=== PATIENT | female | born 1995 | race Two or more races ===

== ENCOUNTER 2018-12-10 14:14 | Inpatient (IN) | payer OTHER ==
[~2018-12-10] VITALS: Ht 165.1 cm; Wt 59.5 kg
[2018-12-10] MEDS ORDERED: LACTATED RINGERS 1,000 ML IV PRN (14:18)
[2018-12-10] MEDS ORDERED: BETAMETHASONE 6 MG/ML, 5ML IM ONE (14:21)
[2018-12-10] MEDS ORDERED: MAGNESIUM SULF. PMX 20GM/500ML 500 ML IV ONE ×2 (14:21→23:20)
[2018-12-10] MEDS: BETAMETHASONE 6 MG/ML, 5ML IM SCH (14:29)
[2018-12-10] MEDS ORDERED: MAGNESIUM SULFATE PMX 4GM/100M 100 ML ONE (14:30)
[2018-12-10] MEDS ORDERED: MAGNESIUM SULFATE PMX 4GM/100M 100 ML IVPB ONE (15:00)
[2018-12-10] MEDS: MAGNESIUM SULF. PMX 20GM/500ML 500 ML IV SCH ×2 (15:29→23:23)
[2018-12-10 18:59] VITALS: BP 117/57
[2018-12-10 20:08] LABS: BASOPHILS # (AUTO) 0.03 x10^3/uL (0-0.1); BASOPHILS % (AUTO) 0 % (0-1); EOSINOPHILS % (AUTO) 0 % (1-7); LYMPHOCYTES # (AUTO) 1.19 x10^3/uL (1-3.4); LYMPHOCYTES % (AUTO) 12 % (22-44); MD NO; MEAN CORPUSCULAR HEMOGLOBIN 24.3 pg (27.0-34.8); MEAN CORPUSCULAR VOLUME 73.6 fL (80-100); MEAN PLATELET VOLUME 9.6 fL (7.4-10.4); MONOCYTES # (AUTO) 0.04 x10^3/uL (0.2-0.8); MONOCYTES % (AUTO) 0 % (2-9); NEUTROPHILS % (AUTO) 87 % (42-75); PLATELET COUNT 234 x10^3/uL (130-400); RED CELL DISTRIBUTION WIDTH 13.3 % (9.6-15.2)
[2018-12-10 20:18] LABS: ALANINE AMINOTRANSFERASE 17 U/L (12-78); ALBUMIN 2.8 g/dL (3.4-5.0); ANION GAP 9 mmol/L (5-15); CALCIUM 8.7 mg/dL (8.5-10.1); CHLORIDE 104 mmol/L (98-107); CREATININE 0.68 mg/dL (0.55-1.02)
[2018-12-10 20:21] LABS: ALKALINE PHOSPHATASE 102 U/L (45-117); BILIRUBIN,TOTAL 0.3 mg/dL (0.2-1.0); TOTAL PROTEIN 7.4 g/dL (6.4-8.2)
[2018-12-10 20:35] LABS: MICROSCOPIC INDICATED
[2018-12-10] MEDS: LACTATED RINGERS 1,000 ML IV SCH (23:23)
[2018-12-11] MEDS: PRENATAL VIT/IRON/FA 1 EACH TABLET PO SCH (09:00)
[2018-12-11] MEDS ORDERED: MAGNESIUM SULF. PMX 20GM/500ML 500 ML IV ONE (12:49)
[2018-12-11] MEDS: BETAMETHASONE 6 MG/ML, 5ML IM SCH (15:02)
[2018-12-11] MEDS: MAGNESIUM SULF. PMX 20GM/500ML 500 ML IV SCH (15:03)
[2018-12-11] MEDS ORDERED: MAGNESIUM SULFATE PMX 2GM/50ML 50 ML IV ONE (16:30)
[2018-12-12] MEDS: LACTATED RINGERS 1,000 ML IV SCH ×2 (02:38→13:13)
[2018-12-12] MEDS ORDERED: PRENATAL VIT/IRON/FA 1 EACH TABLET ONE (09:59)
[2018-12-12] MEDS ORDERED: DOCUSATE 100 MG CAPSULE ONE (09:59)
[2018-12-12] MEDS: PRENATAL VIT/IRON/FA 1 EACH TABLET PO SCH (10:00)
[2018-12-12] MEDS: DOCUSATE 100 MG CAPSULE PO PRN (10:00)
[2018-12-12] MEDS ORDERED: MAGNESIUM SULF. PMX 20GM/500ML 500 ML IV ONE (10:17)
[2018-12-12] MEDS: SODIUM CHLORIDE FLUSH 3ML SYRINGE IVF SCH (21:00)
[2018-12-13] MEDS: SODIUM CHLORIDE FLUSH 3ML SYRINGE IVF SCH (09:00)
[2018-12-13] MEDS ORDERED: PRENATAL VIT/IRON/FA 1 EACH TABLET ONE (10:31)
[2018-12-13] MEDS ORDERED: DOCUSATE 100 MG CAPSULE ONE (10:31)
[2018-12-13] MEDS: DOCUSATE 100 MG CAPSULE PO PRN (10:34)
[2018-12-13] MEDS: PRENATAL VIT/IRON/FA 1 EACH TABLET PO SCH (10:34)
== END 2018-12-13 13:33 | disposition home or self-care (01) | DRG 831 ==
LOC: LDOP 14:14 → LDIP 14:19
PROVIDERS: ADMIT Obstetrics & Gynecology Maternal & Fetal Medicine; ATTEND Obstetrics & Gynecology Maternal & Fetal Medicine
DX: O36.5930 Maternal care for other known or suspected poor fetal growth, third trimester, not applicable or unspecified (principal); O60.03 Preterm labor without delivery, third trimester; O40.3XX0 Polyhydramnios, third trimester, not applicable or unspecified; Z3A.33 33 weeks gestation of pregnancy
CPT/HCPCS: 36415; 80053; 81001; 83735; 85025; 86850; 86900; 87081; G0378; J0702; J3475; J7120

== ENCOUNTER 2019-01-03 17:32 | Outpatient (CLI) | payer OTHER ==
[~2019-01-03] VITALS: Ht 160 cm; Wt 61.0 kg
[2019-01-03 18:32] LABS: MICROSCOPIC INDICATED
== END 2019-01-03 20:50 | disposition home or self-care (01) ==
LOC: LDOP 17:32
PROVIDERS: ATTEND Advanced Practice Midwife
DX: O26.893 Other specified pregnancy related conditions, third trimester (principal); Z3A.36 36 weeks gestation of pregnancy
CPT/HCPCS: 59025; 81001; 87086; 99211; G0463

== ENCOUNTER 2019-01-05 17:25 | Outpatient (CLI) | payer OTHER ==
[~2019-01-05] VITALS: Ht 165.1 cm; Wt 60.9 kg
[2019-01-05 17:39] VITALS: BP 109/73
== END 2019-01-05 20:40 | disposition home or self-care (01) ==
LOC: LDOP 17:25
PROVIDERS: ATTEND Advanced Practice Midwife
DX: Z34.03 Encounter for supervision of normal first pregnancy, third trimester (principal); Z3A.36 36 weeks gestation of pregnancy
CPT/HCPCS: 59025; 87081; 99211; G0463

== ENCOUNTER 2019-01-21 00:45 | Inpatient (IN) | payer OTHER ==
[~2019-01-21] VITALS: Ht 165.1 cm; Wt 61.4 kg
[2019-01-21] MEDS ORDERED: LACTATED RINGERS 1,000 ML IV SCH (00:48)
[2019-01-21] MEDS ORDERED: D5%-LACTATED RINGERS 1,000 ML IV SCH (00:48)
[2019-01-21] MEDS ORDERED: OXYTOCIN 30U/ 0.9% NaCL 500ML 500 ML IV ONE (00:48)
[2019-01-21] MEDS ORDERED: TERBUTALINE 1 MG/ML, 1ML IVPush PRN (01:00)
[2019-01-21] MEDS ORDERED: FENTANYL PF 100 MCG/2ML IVPush PRN (01:00)
[2019-01-21] MEDS ORDERED: METOCLOPRAMIDE 5 MG/ML, 2ML IVPush PRN (01:00)
[2019-01-21] MEDS ORDERED: SODIUM CHLORIDE FLUSH 10ML SYR IVF PRN (01:00)
[2019-01-21] MEDS ORDERED: CALCIUM CARBONATE 500 MG TAB.CHEW PO PRN (01:00)
[2019-01-21] MEDS ORDERED: SODIUM CITRATE/CITRIC ACID 15 ML UDC PO PRN (01:00)
[2019-01-21] MEDS ORDERED: ONDANSETRON 2MG/ML, 2ML IVPush PRN (01:00)
[2019-01-21] MEDS ORDERED: FENTANYL PF 100 MCG/2ML IV PRN (01:00)
[2019-01-21] MEDS ORDERED: OXYTOCIN 30U/ 0.9% NaCL 500ML 500 ML ONE ×2 (01:02→02:46)
[2019-01-21] MEDS ORDERED: LIDOCAINE 1%, 20ML ONE (01:02)
[2019-01-21] MEDS ORDERED: MISOPROSTOL 200 MCG TABLET ONE (01:02)
[2019-01-21] MEDS ORDERED: NEWBORN KIT ONE (01:03)
[2019-01-21 01:22] LABS: BASOPHILS # (AUTO) 0.04 x10^3/uL (0-0.1); BASOPHILS % (AUTO) 0 % (0-1); EOSINOPHILS # (AUTO) 0.07 x10^3/uL (0-0.4); EOSINOPHILS % (AUTO) 1 % (1-7); LYMPHOCYTES # (AUTO) 3.49 x10^3/uL (1-3.4); LYMPHOCYTES % (AUTO) 38 % (22-44); MD NO; MEAN CORPUSCULAR HEMOGLOBIN 24.3 pg (27.0-34.8); MEAN CORPUSCULAR HGB CONC 32.5 g/dL (32.4-35.8); MEAN CORPUSCULAR VOLUME 74.6 fL (80-100); MEAN PLATELET VOLUME 10.2 fL (7.4-10.4); MONOCYTES # (AUTO) 0.62 x10^3/uL (0.2-0.8); MONOCYTES % (AUTO) 7 % (2-9); NEUTROPHILS % (AUTO) 54 % (42-75); PLATELET COUNT 198 x10^3/uL (130-400); RED BLOOD COUNT 5.92 x10^6/uL (3.82-5.3); RED CELL DISTRIBUTION WIDTH 13.6 % (9.6-15.2)
[2019-01-21] MEDS ORDERED: IBUPROFEN 600 MG TABLET ONE (03:09)
[2019-01-21] MEDS: OXYTOCIN 30U/ 0.9% NaCL 500ML 500 ML IV SCH ×3 (03:09→23:09)
[2019-01-21] MEDS: IBUPROFEN 600 MG TABLET PO PRN (03:12)
[2019-01-21] MEDS ORDERED: METHYLERGONOVINE 0.2 MG/ML IM PRN (03:30)
[2019-01-21] MEDS ORDERED: CARBOPROST TROMETHAMINE 250 MCG/ML, 1ML IM PRN (03:30)
[2019-01-21] MEDS ORDERED: ACETAMINOPHEN 325 MG TABLET PO PRN (03:30)
[2019-01-21] MEDS ORDERED: HYDROcodone/APAP 5/325 TABLET PO PRN ×2 (03:30)
[2019-01-21] MEDS ORDERED: ONDANSETRON 2MG/ML, 2ML IV PRN (03:30)
[2019-01-21] MEDS ORDERED: MISOPROSTOL 200 MCG TABLET PR PRN (03:30)
[2019-01-21] MEDS ORDERED: BISACODYL 10 MG SUPP PR PRN (03:30)
[2019-01-21 04:45] VITALS: BP 137/84
[2019-01-21 08:08] VITALS: BP 120/73
[2019-01-21] MEDS: DOCUSATE 100 MG CAPSULE PO PRN (08:43)
[2019-01-21] MEDS: PRENATAL VIT/IRON/FA 1 EACH TABLET PO SCH (08:43)
[2019-01-21 11:10] LABS: BASOPHILS # (AUTO) 0.06 x10^3/uL (0-0.1); BASOPHILS % (AUTO) 1 % (0-1); EOSINOPHILS # (AUTO) 0.02 x10^3/uL (0-0.4); EOSINOPHILS % (AUTO) 0 % (1-7); LYMPHOCYTES # (AUTO) 1.98 x10^3/uL (1-3.4); LYMPHOCYTES % (AUTO) 16 % (22-44); MD NO; MEAN CORPUSCULAR HEMOGLOBIN 24.4 pg (27.0-34.8); MEAN CORPUSCULAR HGB CONC 32.6 g/dL (32.4-35.8); MEAN CORPUSCULAR VOLUME 74.7 fL (80-100); MONOCYTES # (AUTO) 0.71 x10^3/uL (0.2-0.8); MONOCYTES % (AUTO) 6 % (2-9); NEUTROPHILS # (AUTO) 9.53 x10^3/uL (1.8-6.8); NEUTROPHILS % (AUTO) 78 % (42-75); PLATELET COUNT 157 x10^3/uL (130-400); RED BLOOD COUNT 4.72 x10^6/uL (3.82-5.3); RED CELL DISTRIBUTION WIDTH 13.3 % (9.6-15.2)
[2019-01-21 12:22] VITALS: BP 115/70
[2019-01-21 16:36] VITALS: BP 118/75
[2019-01-21 20:35] VITALS: BP 129/87
[2019-01-21 23:15] VITALS: BP 126/84
[2019-01-22] MEDS: IBUPROFEN 600 MG TABLET PO PRN ×3 (00:07→22:17)
[2019-01-22] MEDS: DOCUSATE 100 MG CAPSULE PO PRN ×2 (00:07→08:27)
[2019-01-22 08:20] VITALS: BP 113/81
[2019-01-22] MEDS: PRENATAL VIT/IRON/FA 1 EACH TABLET PO SCH (08:27)
[2019-01-22] MEDS: OXYTOCIN 30U/ 0.9% NaCL 500ML 500 ML IV SCH (09:09)
[2019-01-22 20:05] VITALS: BP 112/74
[2019-01-23 07:30] VITALS: BP 128/83
[2019-01-23] MEDS: PRENATAL VIT/IRON/FA 1 EACH TABLET PO SCH (09:00)
[2019-01-23] MEDS ORDERED: MEASLES,MUMPS&RUBELLA VACC/PF 0.5 ML SQ-VACC ONE ×2 (12:30→16:35)
[2019-01-23] MEDS ORDERED: IBUP-1222 PO (16:08)
[2019-01-23] MEDS ORDERED: DOCU-131 PO (16:08)
[2019-01-23] MEDS: IBUPROFEN 600 MG TABLET PO PRN (16:39)
== END 2019-01-23 21:10 | disposition home or self-care (01) | DRG 807 ==
LOC: LDIP 00:45 → 2NW 04:20
PROVIDERS: ADMIT Obstetrics & Gynecology Maternal & Fetal Medicine; ATTEND Obstetrics & Gynecology Maternal & Fetal Medicine
PROC: 10907ZC Drainage of Amniotic Fluid, Therapeutic from Products of Conception, Via Natural or Artificial Opening (ICD-10-PCS; principal; 2019-01-21)
PROC: 10E0XZZ Delivery of Products of Conception, External Approach (ICD-10-PCS; 2019-01-21)
PROC: 0KQM0ZZ Repair Perineum Muscle, Open Approach (ICD-10-PCS; 2019-01-21)
DX: O36.5930 Maternal care for other known or suspected poor fetal growth, third trimester, not applicable or unspecified (principal); Z37.0 Single live birth; O76 Abnormality in fetal heart rate and rhythm complicating labor and delivery; O77.0 Labor and delivery complicated by meconium in amniotic fluid; O70.1 Second degree perineal laceration during delivery; Z3A.39 39 weeks gestation of pregnancy; Z23 Encounter for immunization
CPT/HCPCS: 36415; 82803; 85025; 86850; 86900; G0378; J2590; J7120

== ENCOUNTER 2019-01-28 12:04 | Inpatient (IN) | payer OTHER ==
[~2019-01-28] VITALS: Ht 165.1 cm; Wt 54.8 kg
[~2019-01-28 12:04] MED LIST: DOCU-131 PO; IBUP-1222 PO
[2019-01-28 12:54] LABS: BASOPHILS % (AUTO) 0 % (0-1); EOSINOPHILS % (AUTO) 0 % (1-7); LYMPHOCYTES % (AUTO) 12 % (22-44); MD NO; MEAN CORPUSCULAR HEMOGLOBIN 24.3 pg (27.0-34.8); MEAN CORPUSCULAR HGB CONC 32.6 g/dL (32.4-35.8); MEAN CORPUSCULAR VOLUME 74.8 fL (80-100); MEAN PLATELET VOLUME 8.3 fL (7.4-10.4); MONOCYTES # (AUTO) 0.79 x10^3/uL (0.2-0.8); MONOCYTES % (AUTO) 5 % (2-9); NEUTROPHILS # (AUTO) 12.34 x10^3/uL (1.8-6.8); NEUTROPHILS % (AUTO) 83 % (42-75); PLATELET COUNT 257 x10^3/uL (130-400); RED BLOOD COUNT 5.41 x10^6/uL (3.82-5.3); RED CELL DISTRIBUTION WIDTH 13.5 % (9.6-15.2)
[2019-01-28] MEDS ORDERED: PLEASE ENTER HEIGHT AND WEIGHT MC SCH ×2 (13:00→13:30)
[2019-01-28] MEDS ORDERED: OXYcodone/APAP 5/325MG TABLET PO PRN ×2 (13:00)
[2019-01-28 13:05] VITALS: BP 114/80
[2019-01-28] MEDS: IBUPROFEN 600 MG TABLET PO PRN ×2 (13:06→19:30)
[2019-01-28 13:07] LABS: ALANINE AMINOTRANSFERASE 44 U/L (12-78); ALBUMIN 2.8 g/dL (3.4-5.0); ANION GAP 6 mmol/L (5-15); CALCIUM 8.8 mg/dL (8.5-10.1); CHLORIDE 107 mmol/L (98-107); CREATININE 0.69 mg/dL (0.55-1.02)
[2019-01-28 13:09] LABS: ALKALINE PHOSPHATASE 96 U/L (45-117); BILIRUBIN,TOTAL 0.1 mg/dL (0.2-1.0); TOTAL PROTEIN 7.5 g/dL (6.4-8.2)
[2019-01-28] MEDS ORDERED: PHARMACOKINETIC MONITORING MC PRN (13:30)
[2019-01-28 13:46] LABS: MICROSCOPIC NOT IND
[2019-01-28 13:47] LABS: CULTURE INDICATED? NO
[2019-01-28] MEDS: AMPICILLIN 2 GM in SODIUM CHLORIDE 0.9% 100 ML IV SCH ×2 (14:11→19:36)
[2019-01-28] MEDS: CLINDAMYCIN PMX 900MG/50ML 50 ML IV SCH ×2 (14:30→22:20)
[2019-01-28 15:01] VITALS: BP 114/80
[2019-01-28] MEDS: GENTAMICIN 80 MG in SODIUM CHLORIDE 0.9% 50 ML IV SCH (16:05)
[2019-01-28 16:11] VITALS: BP 107/71
[2019-01-28 19:50] VITALS: BP 110/73
[2019-01-28] MEDS: SODIUM CHLORIDE FLUSH 3ML SYRINGE IVF SCH (22:22)
[2019-01-28 23:30] VITALS: BP 104/67
[2019-01-29] MEDS: AMPICILLIN 2 GM in SODIUM CHLORIDE 0.9% 100 ML IV SCH ×4 (01:53→19:28)
[2019-01-29 04:15] VITALS: BP 112/75
[2019-01-29] MEDS: CLINDAMYCIN PMX 900MG/50ML 50 ML IV SCH ×3 (06:00→21:34)
[2019-01-29 07:25] VITALS: BP 111/77
[2019-01-29] MEDS: IBUPROFEN 600 MG TABLET PO PRN ×2 (08:28→21:33)
[2019-01-29] MEDS: SODIUM CHLORIDE FLUSH 3ML SYRINGE IVF SCH ×2 (09:00→21:00)
[2019-01-29 12:00] VITALS: BP 112/79
[2019-01-29] MEDS: GENTAMICIN 80 MG in SODIUM CHLORIDE 0.9% 50 ML IV SCH ×2 (15:20→23:28)
[2019-01-29 16:13] VITALS: BP 109/73
[2019-01-29 20:00] VITALS: BP 120/84
[2019-01-29 23:37] VITALS: BP 106/67
[2019-01-30] MEDS: AMPICILLIN 2 GM in SODIUM CHLORIDE 0.9% 100 ML IV SCH ×3 (01:53→13:02)
[2019-01-30 04:32] VITALS: BP 111/73
[2019-01-30 05:33] LABS: BASOPHILS # (AUTO) 0.03 x10^3/uL (0-0.1); BASOPHILS % (AUTO) 0 % (0-1); EOSINOPHILS % (AUTO) 0 % (1-7); LYMPHOCYTES % (AUTO) 32 % (22-44); MD NO; MEAN CORPUSCULAR HEMOGLOBIN 24.4 pg (27.0-34.8); MEAN CORPUSCULAR HGB CONC 32.5 g/dL (32.4-35.8); MEAN CORPUSCULAR VOLUME 75.3 fL (80-100); MEAN PLATELET VOLUME 8.1 fL (7.4-10.4); MONOCYTES # (AUTO) 0.73 x10^3/uL (0.2-0.8); MONOCYTES % (AUTO) 8 % (2-9); NEUTROPHILS # (AUTO) 5.19 x10^3/uL (1.8-6.8); NEUTROPHILS % (AUTO) 59 % (42-75); PLATELET COUNT 243 x10^3/uL (130-400); RED BLOOD COUNT 4.58 x10^6/uL (3.82-5.3); RED CELL DISTRIBUTION WIDTH 13.5 % (9.6-15.2)
[2019-01-30 05:34] LABS: HCT (SEDRATE) 34.5 % (34.6-47.8)
[2019-01-30] MEDS: IBUPROFEN 600 MG TABLET PO PRN ×2 (05:40→12:15)
[2019-01-30] MEDS: CLINDAMYCIN PMX 900MG/50ML 50 ML IV SCH ×2 (05:40→13:49)
[2019-01-30 05:42] LABS: ALBUMIN 2.3 g/dL (3.4-5.0); ANION GAP 5 mmol/L (5-15); CALCIUM 8.3 mg/dL (8.5-10.1); CHLORIDE 110 mmol/L (98-107)
[2019-01-30 05:46] LABS: ALANINE AMINOTRANSFERASE 33 U/L (12-78); ALKALINE PHOSPHATASE 71 U/L (45-117); BILIRUBIN,TOTAL 0.2 mg/dL (0.2-1.0); CREATININE 0.62 mg/dL (0.55-1.02); TOTAL PROTEIN 6.2 g/dL (6.4-8.2)
[2019-01-30] MEDS: GENTAMICIN 80 MG in SODIUM CHLORIDE 0.9% 50 ML IV SCH ×2 (06:43→15:21)
[2019-01-30 08:30] VITALS: BP 105/71
[2019-01-30] MEDS: SODIUM CHLORIDE FLUSH 3ML SYRINGE IVF SCH (09:00)
[2019-01-30 12:12] VITALS: BP 107/75
[2019-01-30] MEDS ORDERED: CEPH-368 PO (13:59)
== END 2019-01-30 17:19 | disposition home or self-care (01) | DRG 776 ==
LOC: 2NW 12:04
PROVIDERS: ADMIT Obstetrics & Gynecology Maternal & Fetal Medicine; ATTEND Obstetrics & Gynecology Maternal & Fetal Medicine
DX: O86.12 Endometritis following delivery (principal); Z22.330 Carrier of Group B streptococcus
CPT/HCPCS: 36415; 80053; 81003; 85025; 85651; G0378; J0290; J1580